=== PATIENT | male | born 1995 | race Hispanic/Latino ===

== ENCOUNTER 2020-02-22 03:46 | Emergency (ER) | payer OTHER ==
[2020-02-22] MEDS ORDERED: TETANUS & DIPHTHERIA TOX,ADULT 0.5 ML VIAL ONE ×2 (03:58→04:12)
[2020-02-22] MEDS ORDERED: CEFAZOLIN/SWI 1gm 1 GM/10 ML SYR ONE (03:59)
[2020-02-22] MEDS ORDERED: LIDOCAINE 1% 20 ML MDV ONE (03:59)
[2020-02-22] MEDS ORDERED: MORPHINE 2 MG/ML SYR ONE ×2 (04:07→04:12)
[2020-02-22 04:36] LABS: Absolute Lymphocytes (CBC) 0.6 K/uL (0.7-4.9); Basophils % 0.2 % (0-1.3); Hematocrit 42.5 % (39.6-49.0); Lymphocytes % 4.3 % (15.3-44.8); MPV 11.7 fL (7.6-11.3); RBC Red Blood Cell Count 4.83 M/uL (4.33-5.43)
[2020-02-22 04:40] LABS: Protime INR 1.28
[2020-02-22 04:48] LABS: Potassium 3.2 mmol/L (3.5-5.1)
[2020-02-22 05:10] LABS: Blood Morphology Comment NOT SEEN (NOT SEEN); Platelet Estimate ADEQ
--- NOTE | 2020-02-22 08:22 | RAD REPORT ---
EXAM DESCRIPTION: RAD -Hand Left 3 View - 02/22/2020 4:55 am CLINICAL HISTORY: Left hand pain status post injury FINDINGS: Amputation involves part of the fourth middle phalanx and fourth distal phalanx. No disloc ation
--- NOTE | 2020-02-22 09:58 | ER ---
Nurse's Notes 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 Coronavirus screen: Proceed with normal triage. Ebola Screen: No symptoms or risks identified at this time. Initial Sepsis Screen: Does the patient meet any 2 criteria? HR > 90 bpm. Does the patient have a suspected source of infection? No. Patient's initial sepsis screen is negative. Risk Assessment: Do you want to hurt yourself or someone else? Patient reports no desire to harm self or others. Onset of symptoms was February 22, 2020. 03:48 Method Of Arrival: EMS: [facility] ea 03:48 Acuity: DAYANNA 3 ea Historical: - Allergies: 04:00 No Known Allergies; ea - Home Meds: 04:00 None [Active]; ea - PMHx: 04:00 None; ea - PSHx: 04:00 None; ea - Immunization history:: Adult Immunizations unknown. - Social history:: Smoking status: unknown. Screenin:53 Abuse screen: Denies threats or abuse. Nutritional screening: No deficits noted. ea Tuberculosis screening: No symptoms or risk factors identified. Fall Risk None identified. Assessment: 03:58 General: Appears uncomfortable, Behavior is calm, cooperative, appropriate for age. ea Pain: Complains of pain in left hand. Neuro: Level of Consciousness is awake, alert, obeys commands, Oriented to person, place, time, situation. Respiratory: Airway is patent Respiratory effort is even, unlabored, Respiratory pattern is regular, symmetrical. Derm: Skin is clammy, Skin is pale, Skin temperature is warm. 03:58 Musculoskeletal: Amputation of. ea 05:03 Reassessment: [facility]aged Care txfr coordinator reports no notification of pt at the [facility] so will experience delay in the patient being transferred, will continue to monitor. 05:39 Reassessment: Patient and/or family updated on plan of care and expected duration. Pain ea level reassessed. Patient is alert, oriented x 3, equal unlabored respirations, skin warm/dry/pink. Pt reports pain has decreased. 06:39 Reassessment: Patient and/or family updated on plan of care and expected duration. Pain ea level reassessed. Patient is alert, oriented x 3, equal unlabored respirations, skin warm/dry/pink. 07:30 Reassessment: Patient appears in no apparent distress at this time. Patient and/or em family updated on plan of care and expected duration. Pain level reassessed. Patient is alert, oriented x 3, equal unlabored respirations, skin warm/dry/pink. 08:30 Reassessment: Patient appears in no apparent distress at this time. Patient and/or em family updated on plan of care and expected duration. Pain level reassessed. pt removed IV, placed dressing, no bleeding noted, IV d/c'd intact. 09:24 Reassessment: Patient appears in no apparent distress at this time. report given to tasia Alonso RN at [facility], pending EMS transportation. 10:30 Reassessment: Patient appears in no apparent distress at this time. Patient and/or em family updated on plan of care and expected duration. Pain level reassessed. Patient is alert, oriented x 3, equal unlabored respirations, skin warm/dry/pink. 10:45 Reassessment: report given to [facility]. em Vital Signs: 03:48 BP 143 / 94; Pulse 105; Resp 20; Temp 100.8; Pulse Ox 98% ; ea 05:37 BP 112 / 88; Pulse 99; Resp 18; Temp 98.6; Pulse Ox 96% ; ea 06:41 BP 144 / 83; Pulse 80; Resp 18; Pulse Ox 95% on R/A; ea 07:30 BP 134 / 80; Pulse 96; Resp 18; Pulse Ox 97% on R/A; em 09:27 BP 144 / 83; Pulse 95; Resp 20; Pulse Ox 97% ; em 10:29 BP 123 / 69; Pulse 95; Resp 16; Pulse Ox 95% on R/A; em ED Course: 03:48 Patient arrived in ED. ea 03:53 Triage completed. ea 03:54 Arm band placed on right wrist. Patient placed in an exam room, on a stretcher, on ea pulse oximetry. 03:54 Patient has correct armband on for positive identification. Bed in low position. Call ea light in reach. Side rails up X2. 03:56 Rommel Doll MD is Attending Physician. tw4 04:00 Mahogany Lee, ISACC is Primary Nurse. ea 04:47 Initiated transfer with Mel at [facility]. Was redirected to Managed Care because patient tt3 is an inmate. 04:55 Hand Left 3 View XRAY In Process Unspecified. EDMS 08:00 Called [facility] to get an update on transfer status of pt, no answer. em1 08:20 Attending Physician role handed off by Rommel Doll MD kdr 08:20 Justice Mccauley MD is Attending Physician. kdr 08:30 Called [facility] to get an update on transfer status of pt, no answer. em1 08:30 No provider procedures requiring assistance completed. em 09:27 IV discontinued, intact, bleeding controlled, No redness/swelling at site. Pressure em dressing applied. Administered Medications: 04:00 Drug: morphine 4 mg Route: IVP; Site: left antecubital; ea 07:30 Follow up: Response: No adverse reaction; Marked relief of symptoms; Pain is decreased; em RASS: Alert and Calm (0) 04:00 Drug: ADAcel 0.5 ml {Telephone Clerk Telegraph Office: [employer]. Exp: 09/30/2021. Lot #: [id number]. } ao Route: IM; Site: right deltoid; 07:30 Follow up: Response: No adverse reaction em 04:01 Drug: Zofran (Ondansetron) 4 mg Route: IVP; Site: left antecubital; ea 07:30 Follow up: Response: No adverse reaction em 04:01 Drug: Ancef 1 grams Route: IVPB; Site: left antecubital; ea 04:15 CANCELLED (Duplicate Order): Tetanus-Diphtheria Toxoid Ped 0.5 ml IM once ao 04:15 CANCELLED (Duplicate Order): Tetanus-Diphtheria Toxoid Adult 0.5 ml IM once ao Outcome: 09:58 ER care complete, transfer ordered by . kdr 11:14 Transferred by ground EMS to [facility], Transfer form em completed. X-rays sent w/ patient. 11:14 Condition: good 11:14 Instructed on the need for transfer, Demonstrated understanding of instructions. 11:14 Patient left the ED. em Signatures: Dispatcher [employer] Benigno Brown, Justice Murray RN, MD MD kdr Munoz, Edgar, RN RN em Martinez, Eric em1 Kehinde Lo RN Mahogany Clark RN RN ea Wadley, Terrence, MD MD tw4 Lazaro Saavedra tt3 Corrections: (The following items were deleted from the chart) 04:15 03:58 Derm: Skin is clammy, Skin is pale, Skin temperature is warm emely han
--- NOTE | 2020-02-22 09:58 | EDPHYS ---
Physician Documentation [facility] Name: Bang Velazquez Age: 24 yrs Sex: Male : 1995 Arrival Date: 02/22/2020 Time: 03:48 Bed 3 Private MD: ED Physician Justice Mccauley HPI: 02/21 05:36 This 24 yrs old Male presents to ER via EMS with complaints of amputation of tw4 left ring finger. 05:36 The patient or guardian reports injury, a laceration, ragged, amputation. The tw4 complaints affect the DIP of left ring finger. Context: The problem was sustained at a correctional facility. Onset: The symptoms/episode began/occurred today. Modifying factors: The symptoms are alleviated by nothing, the symptoms are aggravated by nothing. Severity of symptoms: At their worst the symptoms were moderate, in the emergency department the symptoms are unchanged. Historical: - Allergies: 04:00 No Known Allergies; ea - Home Meds: 04:00 None [Active]; ea - PMHx: 04:00 None; ea - PSHx: 04:00 None; ea - Immunization history:: Adult Immunizations unknown. - Social history:: Smoking status: unknown. ROS: 05:36 Constitutional: Negative for fever, chills, and weight loss, Eyes: Negative for injury, tw4 pain, redness, and discharge, Cardiovascular: Negative for chest pain, palpitations, and edema, Respiratory: Negative for shortness of breath, cough, wheezing, and pleuritic chest pain, Abdomen/GI: Negative for abdominal pain, nausea, vomiting, diarrhea, and constipation, Skin: Negative for injury, rash, and discoloration. 05:36 MS/extremity: Positive for laceration, tenderness. Exam: 05:36 Constitutional: This is a well developed, well nourished patient who is awake, alert, tw4 and in no acute distress. Head/Face: Normocephalic, atraumatic. Cardiovascular: Regular rate and rhythm with a normal S1 and S2. No gallops, murmurs, or rubs. Normal PMI, no JVD. No pulse deficits. Respiratory: Lungs have equal breath sounds bilaterally, clear to auscultation and percussion. No rales, rhonchi or wheezes noted. No increased work of breathing, no retractions or nasal flaring. Abdomen/GI: Soft, non-tender, with normal bowel sounds. No distension or tympany. No guarding or rebound. No evidence of tenderness throughout. Back: No spinal tenderness. No costovertebral tenderness. Full range of motion. Neuro: Awake and alert, GCS 15, oriented to person, place, time, and situation. Cranial nerves II-XII grossly intact. Motor strength 5/5 in all extremities. Sensory grossly intact. Cerebellar exam normal. Normal gait. 05:36 Musculoskeletal/extremity: Extremities: noted in the dorsal aspect of distal phalanx of left ring finger: amputation, ROM: no acute changes. Vital Signs: 03:48 BP 143 / 94; Pulse 105; Resp 20; Temp 100.8; Pulse Ox 98% ; ea 05:37 BP 112 / 88; Pulse 99; Resp 18; Temp 98.6; Pulse Ox 96% ; ea 06:41 BP 144 / 83; Pulse 80; Resp 18; Pulse Ox 95% on R/A; ea 07:30 BP 134 / 80; Pulse 96; Resp 18; Pulse Ox 97% on R/A; em 09:27 BP 144 / 83; Pulse 95; Resp 20; Pulse Ox 97% ; em 10:29 BP 123 / 69; Pulse 95; Resp 16; Pulse Ox 95% on R/A; em MDM: 03:56 Patient medically screened. tw4 05:36 Differential diagnosis: dislocation, open fracture, closed fracture. Data reviewed: tw4 vital signs, nurses notes. Data interpreted: Pulse oximetry: Interpretation: normal. Counseling: I had a detailed discussion with the patient and/or guardian regarding: the historical points, exam findings, and any diagnostic results supporting the discharge/admit diagnosis, radiology results. 02/21 03:58 Order name: PT-INR; Complete Time: 05:24 02/21 05:25 Interpretation: Normal except: PT 15.0. 02/21 03:58 Order name: Ptt, Activated; Complete Time: 05:24 02/21 05:27 Interpretation: Within normal limits: PTT 26.8. 02/21 03:58 Order name: CBC with Diff; Complete Time: 05:24 02/21 05:25 Interpretation: Normal except: WBC 13.2; PLT 87; MPV 11.7; MICHELLE% 89.9; LYM% 4.3; NEUT A tw4 11.9. 02/21 03:58 Order name: BMP; Complete Time: 05:24 tw4 02/21 05:26 Interpretation: Normal except: K 3.2; CL 108; GLUC 107; BUN 19; CRE 1.53; GFR 56. tw4 02/21 04:07 Order name: Hand Left 3 View XRAY; Complete Time: 08:53 tw4 02/21 04:39 Order name: Manual Differential; Complete Time: 05:24 EDMS 02/21 05:26 Interpretation: Normal except: BANDS [F] 4; SEGS 84; LYM 6. tw4 Administered Medications: 04:00 Drug: morphine 4 mg Route: IVP; Site: left antecubital; ea 07:30 Follow up: Response: No adverse reaction; Marked relief of symptoms; Pain is decreased; em RASS: Alert and Calm (0) 04:00 Drug: ADAcel 0.5 ml {Underwriting Support Manager: [employer]. Exp: 09/30/2021. Lot #: [id number]. } ao Route: IM; Site: right deltoid; 07:30 Follow up: Response: No adverse reaction em 04:01 Drug: Zofran (Ondansetron) 4 mg Route: IVP; Site: left antecubital; ea 07:30 Follow up: Response: No adverse reaction em 04:01 Drug: Ancef 1 grams Route: IVPB; Site: left antecubital; ea 04:15 CANCELLED (Duplicate Order): Tetanus-Diphtheria Toxoid Ped 0.5 ml IM once ao 04:15 CANCELLED (Duplicate Order): Tetanus-Diphtheria Toxoid Adult 0.5 ml IM once ao Disposition: 02/22/20 09:58 Transfer ordered to [facility]. 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 - Reason for transfer: Higher level of care. - Accepting physician is Ken Marx. - Condition is Fair. - Problem is new. - Symptoms have improved. Signatures: Dispatcher [employer] Justice Banuelos MD MD kdr Munoz, Edgar, RN RN em Ortiz, Alex, RN RN ao Antunez, Elena, RN RN ea Wadley, Terrence, MD MD tw4 Corrections: (The following items were deleted from the chart) 04:15 04:13 Tetanus-Diphtheria Toxoid Ped 0.5 ml IM once ordered. ao ao 04:15 04:13 Tetanus-Diphtheria Toxoid Adult 0.5 ml IM once ordered. ao ao 11:14 09:58 02/22/2020 09:58 Transfer ordered to [facility]. Diagnosis is Complete traumatic em metacarpophalangeal amputation of left ring finger - mid- midlle phalanx. Reason for transfer: Higher level of care. Accepting physician is Ken Marx. Condition is Fair. Problem is new. Symptoms have improved. kdr
[2020-02-22 12:10] VITALS: TEMP 100.8
[2020-02-22 12:15] VITALS: BP 123/69; O2SAT 95
== END 2020-02-22 11:14 | disposition short-term general hospital (02) ==
LOC: ER 03:46
DX: S68.115A Complete traumatic metacarpophalangeal amputation of left ring finger, initial encounter (principal); X83.8XXA Intentional self-harm by other specified means, initial encounter; Y93.9 Activity, unspecified; Y92.149 Unspecified place in prison as the place of occurrence of the external cause; Z23 Encounter for immunization
CPT/HCPCS: 36415; 80048; 85025; 85610; 85730; 90471; 90714; 96374; 96375; 99285; G0390; J0690; J2270

== ENCOUNTER 2020-04-12 20:48 | Emergency (ER) | payer OTHER ==
--- NOTE | 2020-04-12 21:17 | ER ---
Nurse's Notes [facility] Name: Bang Velazquez Age: 24 yrs Sex: Male : 1995 Arrival Date: 04/12/2020 Time: 20:50 Bed 7 Private MD: Diagnosis: Suicidal ideations;Suicide attempt-self inflicted bite to left 5th finger, and left neck;Major depressive disorder, recurrent;Nondisplaced fracture of proximal phalanx of left middle finger Presentation: 04/12 20:51 Chief complaint: EMS states: Reports pt had a self inflicted injuries to the neck, left ea wrist and left pinky. Pt accompanied by alf guards. Pt reported he used a razor blade to cut his wrist and neck, pt tried to bite his own pinky off. Coronavirus screen: At this time, the client does not indicate any symptoms associated with coronavirus-19. Ebola Screen: No symptoms or risks identified at this time. Initial Sepsis Screen: Does the patient meet any 2 criteria? No. Patient's initial sepsis screen is negative. Does the patient have a suspected source of infection? No. Patient's initial sepsis screen is negative. Risk Assessment: Do you want to hurt yourself or someone else? Patient reports desire/thoughts of hurting themselves or someone else. Provider notified. Other: pt reports he was trying to hurt himself. Onset of symptoms was April 12, 2020. 20:51 Method Of Arrival: EMS: [facility] ea 20:51 Acuity: DAYANNA 2 ea Triage Assessment: 20:58 General: Appears in no apparent distress. Behavior is calm, cooperative, appropriate ea for age. Pain: Complains of pain in left hand. Historical: - Allergies: 20:57 No Known Allergies; ea - Home Meds: 20:57 Zoloft Oral [Active]; ea - PSHx: 20:57 None; left hand surgery; ea - Immunization history:: Adult Immunizations up to date. - Social history:: Smoking status: Patient denies any tobacco usage or history of. Screenin:55 Abuse screen: Denies threats or abuse. Nutritional screening: No deficits noted. ea Tuberculosis screening: No symptoms or risk factors identified. Fall Risk None identified. Assessment: 20:58 General: Appears in no apparent distress. Behavior is cooperative, quiet. Pain: ea Complains of pain in palmar aspect of middle phalanx of left little finger and dorsal aspect of middle phalanx of left little finger. Neuro: Level of Consciousness is awake, alert, obeys commands, Oriented to person, place, time, situation. Cardiovascular: Patient's skin is warm and dry. Respiratory: Airway is patent Respiratory effort is even, unlabored, Respiratory pattern is regular, symmetrical. Derm: Skin is dry, Skin is pale, Skin temperature is warm. Injury Description: self inflicted abrasions to neck, superficial self harm laceration to chas wrist, bite shahrzad to left 5th finger. 21:47 Reassessment: Patient and/or family updated on plan of care and expected duration. Pain ea level reassessed. Patient is alert, oriented x 3, equal unlabored respirations, skin warm/dry/pink. 22:37 Reassessment: Report given to [place] DEXTER at [facility]. ea 23:11 Reassessment: Patient and/or family updated on plan of care and expected duration. Pain ea level reassessed. Patient is alert, oriented x 3, equal unlabored respirations, skin warm/dry/pink. 04/13 00:07 Reassessment: Pt resting with eyes closed, respirations even and unlabored, chest ea expansions even and symmetrical. Psych: 04/12 20:55 Subjective: Patient's mood is sad, Delusions are denied, Hallucinations are denied ea Having thoughts of suicide. Objective: Patient is cooperative, Speech is normal, Affect is appropriate. Suicide Risk Assessment: Sad Person Scale: Sex of patient: Male: Score 1 point. Age of patient: Score 1 point if patient 15-34. Depression: Score 1 point if signs of depression are present. Previous Attempt: Score 1 point if patient has previously attempted suicide. Substance Abuse: Score 0 point if patient does not abuse alcohol or drugs. Rational Thinking: Score 0 point if patient has rational thinking. Organized Plan: Score 1 point if patient had a plan in place. Safety Checks: Door is open. alf guards at bedside. Pt denies substance abuse. 20:58 Interventions: pt arrived cuffed and accompanied by alf guards. ea 04/13 00:48 Commitment: Patient will be a voluntary commitment. mg2 Vital Signs: 04/12 20:51 BP 151 / 86; Pulse 94; Resp 18; Temp 98.8; Pulse Ox 100% on R/A; Weight 72.57 kg; ea Height 6 ft. 1 in. (185.42 cm); Pain 8/10; 21:47 BP 147 / 83; Pulse 98; Resp 18; Pulse Ox 100% ; ea 22:38 BP 126 / 89; Pulse 92; Resp 18; Pulse Ox 100% ; ea 04/13 00:47 BP 126 / 80; Pulse 92; Resp 18; Pulse Ox 100% on R/A; mg2 04/12 20:51 Body Mass Index 21.11 (72.57 kg, 185.42 cm) ea ED Course: 04/12 20:50 Patient arrived in ED. ea 20:55 Triage completed. ea 20:55 Patient has correct armband on for positive identification. Bed in low position. Call ea light in reach. Side rails up X2. alf guards at bedside. 20:58 Arm band placed on right wrist. Patient placed in an exam room, on a stretcher, on ea pulse oximetry. 20:59 Mahogany Lee RN is Primary Nurse. ea 21:04 Vikash Verde MD is Attending Physician. magdalena 21:29 Hand Left 3 View XRAY In Process Unspecified. EDMS 21:31 initiated transfer with TDC spoke with Frankie. mw2 22:19 acceptance to [facility]DC given by Frankie Gibson Accepting . mw2 22:50 [facility]2 hours. mw2 23:30 Inserted saline lock: 20 gauge in right antecubital area, using aseptic technique. mg2 Blood collected. by ISACC Vides. 04/13 00:46 No provider procedures requiring assistance completed. Patient transferred, IV remains mg2 in place. Administered Medications: 04/12 21:28 Drug: Unasyn 3 grams Route: IVPB; Infused Over: 30 mins; Site: right antecubital; ea 23:17 Follow up: Response: No adverse reaction; IV Status: Completed infusion; IV Intake: mg2 100ml : Drug: NS 0.9% 1000 ml Route: IV; Rate: 1 bolus; Site: right antecubital; ea 23:17 Follow up: Response: No adverse reaction; IV Status: Completed infusion; IV Intake: mg2 1000ml : Drug: Bactroban Ointment 2 % 1 application Route: Topical; Site: affected area; ea 21:43 Drug: Tetanus-Diphtheria Toxoid Adult 0.5 ml {Drainage Engineer: [employer]. Exp: ea 10/09/2022. Lot #: [id number]. } Route: IM; Site: right deltoid; 23:18 Follow up: Response: No adverse reaction mg2 Intake: 23:17 IV: 1000ml; Total: 1000ml. mg2 23:17 IV: 100ml; Total: 1100ml. mg2 Outcome: 21:17 ER care complete, transfer ordered by MD. nichols 04/13 00:47 Transferred by ground EMS to [facility], Transfer form mg2 completed. Condition: stable Instructed on the need for transfer, Demonstrated understanding of instructions. 00:48 Patient left the ED. mg2 Signatures: Dispatcher [employer] EDVikash Weaver MD MD cha Antunez, Elena, RN Chano Quiroga ea 2 Deejay Mckinley RN RN mg2 Corrections: (The following items were deleted from the chart) 00:47 04/12 23:30 Inserted saline lock: by ISACC Vides mg2 mg2
--- NOTE | 2020-04-12 21:17 | EDPHYS ---
Physician Documentation [facility] Name: Bang Velazquez Age: 24 yrs Sex: Male : 1995 Arrival Date: 04/12/2020 Time: 20:50 Bed 7 Private MD: ED Physician Vikash Verde HPI: 04/12 21:10 This 24 yrs old Male presents to ER via EMS with complaints of Suicidal magdalena Ideation and bite to left 5th finger, infected. 21:10 The patient presents to the emergency department with depression, suicide ideation. magdalena Onset: The symptoms/episode began/occurred 2 day(s) ago. Past psychiatric history: Prior diagnosis: bipolar disorder, depression. Associated signs and symptoms: Pertinent positives; depression, suicide ideation. Severity of symptoms: At their worst the symptoms were moderate in the emergency department the symptoms are unchanged. The patient has not experienced similar symptoms in the past. Historical: - Allergies: 20:57 No Known Allergies; ea - Home Meds: 20:57 Zoloft Oral [Active]; ea - PSHx: 20:57 None; left hand surgery; ea - Immunization history:: Adult Immunizations up to date. - Social history:: Smoking status: Patient denies any tobacco usage or history of. ROS: 21:12 Constitutional: Negative for fever, chills, and weight loss, Eyes: Negative for injury, magdalena pain, redness, and discharge, ENT: Negative for injury, pain, and discharge, Neck: Negative for injury, pain, and swelling, Cardiovascular: Negative for chest pain, palpitations, and edema, Respiratory: Negative for shortness of breath, cough, wheezing, and pleuritic chest pain, Abdomen/GI: Negative for abdominal pain, nausea, vomiting, diarrhea, and constipation, Back: Negative for injury and pain, : Negative for injury, bleeding, discharge, and swelling, Neuro: Negative for headache, weakness, numbness, tingling, and seizure, Allergy/Immunology: Negative for hives, rash, and allergies, Endocrine: Negative for neck swelling, polydipsia, polyuria, polyphagia, and marked weight changes, Hematologic/Lymphatic: Negative for swollen nodes, abnormal bleeding, and unusual bruising. 21:12 MS/extremity: Positive for decreased range of motion, erythema, pain, swelling, tenderness, of the dorsal aspect of middle phalanx of left little finger and palmar aspect of middle phalanx of left little finger. Exam: 21:12 Constitutional: This is a well developed, well nourished patient who is awake, alert, magdalena and in no acute distress. Head/Face: Normocephalic, atraumatic. Eyes: Pupils equal round and reactive to light, extra-ocular motions intact. Lids and lashes normal. Conjunctiva and sclera are non-icteric and not injected. Cornea within normal limits. Periorbital areas with no swelling, redness, or edema. ENT: Nares patent. No nasal discharge, no septal abnormalities noted. Tympanic membranes are normal and external auditory canals are clear. Oropharynx with no redness, swelling, or masses, exudates, or evidence of obstruction, uvula midline. Mucous membranes moist. Neck: Trachea midline, no thyromegaly or masses palpated, and no cervical lymphadenopathy. Supple, full range of motion without nuchal rigidity, or vertebral point tenderness. No Meningismus. Chest/axilla: Normal chest wall appearance and motion. Nontender with no deformity. No lesions are appreciated. Cardiovascular: Regular rate and rhythm with a normal S1 and S2. No gallops, murmurs, or rubs. Normal PMI, no JVD. No pulse deficits. Respiratory: Lungs have equal breath sounds bilaterally, clear to auscultation and percussion. No rales, rhonchi or wheezes noted. No increased work of breathing, no retractions or nasal flaring. Abdomen/GI: Soft, non-tender, with normal bowel sounds. No distension or tympany. No guarding or rebound. No evidence of tenderness throughout. Back: No spinal tenderness. No costovertebral tenderness. Full range of motion. Male : Normal genitalia with no discharge or lesions. Skin: Warm, dry with normal turgor. Normal color with no rashes, no lesions, and no evidence of cellulitis. Neuro: Awake and alert, GCS 15, oriented to person, place, time, and situation. Cranial nerves II-XII grossly intact. Motor strength 5/5 in all extremities. Sensory grossly intact. Cerebellar exam normal. Normal gait. 21:12 Musculoskeletal/extremity: ROM: limited active range of motion due to pain, limited passive range of motion due to pain, Circulation is intact in all extremities. Sensation intact. Compartment Syndrome exam of affected extremity: is normal. Tendon exam: specific tendon testing normal through active and passive range of motion 21:12 Psych: Behavior/mood is pleasant, cooperative, Affect is flat, Oriented to person, place, time, Patient has no thoughts/intents to harm self or others. Judgement / Insight is normal. Memory is normal. Delusions/hallucinations are not present. 21:43 ECG was reviewed by the Attending Physician. magdalena Vital Signs: 20:51 BP 151 / 86; Pulse 94; Resp 18; Temp 98.8; Pulse Ox 100% on R/A; Weight 72.57 kg; ea Height 6 ft. 1 in. (185.42 cm); Pain 8/10; 21:47 BP 147 / 83; Pulse 98; Resp 18; Pulse Ox 100% ; ea 22:38 BP 126 / 89; Pulse 92; Resp 18; Pulse Ox 100% ; ea 04/13 00:47 BP 126 / 80; Pulse 92; Resp 18; Pulse Ox 100% on R/A; mg2 04/12 20:51 Body Mass Index 21.11 (72.57 kg, 185.42 cm) ea MDM: 04/12 21:04 Patient medically screened. magdalena 21:14 Differential diagnosis: open fracture, tendonitis, acute psychotic break, depression. magdalena Data reviewed: vital signs, nurses notes, lab test result(s), EKG, radiologic studies, plain films. 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 rate is 94 beats/min, rhythm is regular, Pulse oximetry: on room air is 100 %. Test interpretation: by ED physician or midlevel provider: ECG, plain radiologic studies. Counseling: I had a detailed discussion with the patient and/or guardian regarding: the historical points, exam findings, and any diagnostic results supporting the discharge/admit diagnosis, lab results, radiology results, the need to transfer to another facility, for higher level of care, [facility] does not immediately have the required specialist. 04/12 21:10 Order name: Acetaminophen; Complete Time: 22:13 magdalena 04/12 21:10 Order name: Basic Metabolic Panel; Complete Time: 22:13 magdalena 04/12 21:10 Order name: CBC with Diff; Complete Time: 22:13 [facility] 04/12 21:10 Order name: ETOH Level; Complete Time: 22:13 [facility] 04/12 21:10 Order name: Hepatic Function; Complete Time: 22:13 [facility] 04/12 21:10 Order name: PT-INR; Complete Time: 22:13 [facility] 04/12 21:10 Order name: Ptt, Activated; Complete Time: 22:13 [facility] 04/12 21:10 Order name: Salicylate; Complete Time: 22:13 [facility] 04/12 21:10 Order name: Urine Drug Screen [facility] 04/12 21:10 Order name: Hand Left 3 View XRAY; Complete Time: 22:13 [facility] 04/12 23:07 Order name: Urine Dipstick--Ancillary (enter results) [facility] 04/12 21:10 Order name: EKG; Complete Time: 21:11 [facility] 04/12 21:10 Order name: EKG - Nurse/Tech; Complete Time: 21:12 [facility] 04/12 21:10 Order name: IV Saline Lock; Complete Time: 21:12 [facility] 04/12 21:10 Order name: Labs collected and sent; Complete Time: 21:12 [facility] 04/12 21:10 Order name: Urine Dipstick-Ancillary (obtain specimen); Complete Time: 23:17 [facility] 04/12 21:10 Order name: Wound dressing; Complete Time: 21:12 [facility] EC:43 Rate is 96 beats/min. Rhythm is regular. QRS [place] is Normal. ND interval is normal. QRS magdalena interval is normal. QT interval is normal. No Q waves. T waves are Normal. No ST changes noted. Clinical impression: NSR w/ Non-specific ST/T Changes and No evidence of ischemia. Interpreted by me. Reviewed by me. Administered Medications: :28 Drug: Unasyn 3 grams Route: IVPB; Infused Over: 30 mins; Site: right antecubital; ea 23:17 Follow up: Response: No adverse reaction; IV Status: Completed infusion; IV Intake: mg2 100ml 21:28 Drug: NS 0.9% 1000 ml Route: IV; Rate: 1 bolus; Site: right antecubital; ea 23:17 Follow up: Response: No adverse reaction; IV Status: Completed infusion; IV Intake: mg2 1000ml 21:28 Drug: Bactroban Ointment 2 % 1 application Route: Topical; Site: affected area; ea 21:43 Drug: Tetanus-Diphtheria Toxoid Adult 0.5 ml {Sole Tacker: [employer]. Exp: ea 10/09/2022. Lot #: [id number]. } Route: IM; Site: right deltoid; 23:18 Follow up: Response: No adverse reaction mg2 Disposition: 04/12/20 21:17 Transfer ordered to [facility]. Diagnosis are Suicidal ideations, Suicide attempt - self inflicted bite to left 5th finger, and left neck, Major depressive disorder, recurrent, Nondisplaced fracture of proximal phalanx of left middle finger. - Reason for transfer: Higher level of care. - Accepting physician is [facility] tdc, psych, hand. - Condition is Fair. - Problem is new. - Symptoms have improved. Signatures: Dispatcher [employer] EDVikash Weaver MD MD cha Antunez, Elena, RN RN ea Gardose, Michele, RN RN mg2 Corrections: (The following items were deleted from the chart) 21:47 21:17 04/12/2020 21:17 Transfer ordered to [facility]. Diagnosis is Suicidal magdalena ideations; Suicide attempt - self inflicted bite to left 5th finger, and left neck; Major depressive disorder, recurrent. Reason for transfer: Higher level of care. Accepting physician is [facility] tdc, psych, hand. Condition is Fair. Problem is new. Symptoms have improved. magdalena 04/13 00:48 04/12 21:47 04/12/2020 21:17 Transfer ordered to [facility]. Diagnosis is Suicidal mg2 ideations; Suicide attempt - self inflicted bite to left 5th finger, and left neck; Major depressive disorder, recurrent; Nondisplaced fracture of proximal phalanx of left middle finger. Reason for transfer: Higher level of care. Accepting physician is [facility] tdc, psych, hand. Condition is Fair. Problem is new. Symptoms have improved. magdalena
[2020-04-12] MEDS ORDERED: NA CHLORIDE 0.9% 1,000 ML ONE (21:24)
[2020-04-12] MEDS ORDERED: AMPICILLIN/SULBACTAM 3GM/VIAL ONE (21:24)
[2020-04-12] MEDS ORDERED: NA CHLORIDE 0.9% 100 ML IV ONE (21:24)
[2020-04-12] MEDS ORDERED: MUPIROCIN 2% OINT 22GM TUBE TOP ONE (21:24)
[2020-04-12] MEDS ORDERED: TETANUS & DIPHTHERIA TOX,ADULT 0.5 ML VIAL ONE (21:44)
--- NOTE | 2020-04-12 21:45 | RAD REPORT ---
EXAM DESCRIPTION: RAD - Hand Left 3 View - 04/12/2020 9:29 pm CLINICAL HISTORY: self inflicted bite;Pain Pain and swelling COMPARISON: Hand Left 3 View dated 02/22/2020 FINDINGS: Previous partial amputation of the fourth finger noted. Mild soft tissue swelling is prese nt involving the fifth finger. No fracture seen
[2020-04-12 21:58] LABS: Absolute Lymphocytes (CBC) 1.2 K/uL (0.7-4.9); Basophils % 0.4 % (0-1.3); Hematocrit 40.7 % (39.6-49.0); Lymphocytes % 13.1 % (15.3-44.8); MPV 12.2 fL (7.6-11.3); RBC Red Blood Cell Count 4.64 M/uL (4.33-5.43)
[2020-04-12 22:04] LABS: ALT/SGPT 18 U/L (12-78); AST/SGOT 20 U/L (15-37); Albumin 3.9 g/dL (3.4-5.0); Alkaline Phosphatase 59 U/L (45-117); BUN Blood Urea Nitrogen 23 mg/dL (7-18); Bicarbonate 27 mmol/L (21-32); Bilirubin Direct 0.2 mg/dL (0-0.2); Bilirubin Total 0.5 mg/dL (0.2-1.0); Glucose Level 104 mg/dL (74-106); Potassium 3.7 mmol/L (3.5-5.1); Protein, Total 8.2 g/dL (6.4-8.2); Sodium Level 138 mmol/L (136-145)
[2020-04-12 22:05] LABS: Protime INR 1.26
[2020-04-12 23:16] LABS: Urine Blood NEGATIVE (NEG); Urine Glucose NEGATIVE (NEG); Urine Protein NEGATIVE (NEG); Urine pH 6.5 (5.0-7.0)
[2020-04-12 23:27] LABS: Barbiturates NEGATIVE (NEGATIVE); Benzodiazepines NEGATIVE (NEGATIVE); Cocaine NEGATIVE (NEGATIVE); METHAMPHETAM NEGATIVE (NEGATIVE); Methadone NEGATIVE (NEGATIVE); Opiates NEGATIVE (NEGATIVE); Phencyclidine NEGATIVE (NEGATIVE); THC Cannibis NEGATIVE (NEGATIVE)
--- NOTE | 2020-04-14 05:50 | EKG ---
Test Date: 2020-04-12 Test Time: 21:10:10 Talk Show Host: MG MEASUREMENT RESULTS: Intervals: Rate: 96 ID: [id number] QRSD: 108 QT: 394 QTc: 497 [place]: P: 61 ID: [id number] QRS: 74 T: 56 INTERPRETIVE STATEMENTS: Normal sinus rhythm Right atrial enlargement Prolonged QT Abnormal ECG No previous ECG available for comparison Electronically Signed On 04-14-20 05:45:36 CDT by Douglas Jackman
[2020-04-17 08:55] VITALS: TEMP 98.8; O2SAT 100
[2020-04-17 08:59] VITALS: BP 126/80
== END 2020-04-13 00:48 | disposition short-term general hospital (02) ==
LOC: ER 20:48
DX: S11.91XA Laceration without foreign body of unspecified part of neck, initial encounter (principal); S61.512A Laceration without foreign body of left wrist, initial encounter; S62.613A Displaced fracture of proximal phalanx of left middle finger, initial encounter for closed fracture; F33.9 Major depressive disorder, recurrent, unspecified; X78.8XXA Intentional self-harm by other sharp object, initial encounter; Y93.9 Activity, unspecified; Y92.149 Unspecified place in prison as the place of occurrence of the external cause; S61.253A Open bite of left middle finger without damage to nail, initial encounter; W50.3XXA Accidental bite by another person, initial encounter; Z23 Encounter for immunization
CPT/HCPCS: 36415; 80048; 80076; 80307; 80320; 80329; 81003; 85025; 85610; 85730; 90471; 90714; 93005; 96365; 96366; 99285; J0295; J7030

== ENCOUNTER 2020-07-18 20:18 | Emergency (ER) | payer OTHER ==
[2020-07-18 21:04] LABS: Absolute Lymphocytes (CBC) 0.9 K/uL (0.7-4.9); Basophils % 0.2 % (0-1.3); Hematocrit 41.6 % (39.6-49.0); Lymphocytes % 12.7 % (15.3-44.8); MPV 11.2 fL (7.6-11.3); RBC Red Blood Cell Count 4.76 M/uL (4.33-5.43)
[2020-07-18 21:18] LABS: Protime INR 1.13
[2020-07-18 21:47] LABS: ALT/SGPT 16 U/L (12-78); AST/SGOT 21 U/L (15-37); Albumin 4.2 g/dL (3.4-5.0); Alkaline Phosphatase 57 U/L (45-117); BUN Blood Urea Nitrogen 16 mg/dL (7-18); Bicarbonate 27 mmol/L (21-32); Bilirubin Direct 0.2 mg/dL (0-0.2); Bilirubin Total 0.7 mg/dL (0.2-1.0); Glucose Level 104 mg/dL (74-106); Potassium 4.1 mmol/L (3.5-5.1); Protein, Total 7.5 g/dL (6.4-8.2); Sodium Level 138 mmol/L (136-145)
[2020-07-18 22:28] LABS: Blood Morphology Comment NOT SEEN (NOT SEEN); Platelet Estimate DECR; White Blood Cell Scan OK (OK)
[2020-07-18 23:21] LABS: Urine Blood TRACE (NEG); Urine Glucose NEGATIVE (NEG); Urine Protein NEGATIVE (NEG); Urine Specific Gravity 1.015 (1.005-1.030)
[2020-07-18 23:34] LABS: Barbiturates NEGATIVE (NEGATIVE); Benzodiazepines NEGATIVE (NEGATIVE); Cocaine NEGATIVE (NEGATIVE); METHAMPHETAM NEGATIVE (NEGATIVE); Methadone NEGATIVE (NEGATIVE); Opiates NEGATIVE (NEGATIVE); Phencyclidine NEGATIVE (NEGATIVE); THC Cannibis NEGATIVE (NEGATIVE)
--- NOTE | 2020-07-19 05:40 | EDPHYS ---
Physician Documentation [facility] Name: Bang Velazquez Age: 24 yrs Sex: Male : 1995 Arrival Date: 07/18/2020 Time: 20:19 Bed 2 Private MD: ED Physician Garry Beasley HPI: 07/18 20:42 This 24 yrs old Male presents to ER via Unassigned with complaints of Overdose.mh7 20:42 The patient presents to the emergency department after a known overdose, that was mh7 intentional. Context: Method: the patient has a confirmed or suspected ingestion, Risperidal, Time: today, at 17:30, Extent: moderate ingestion, the strength of the pills/capsules is 2 mg(s), the patient had a total ingestion of approximately 40 mg(s), 20 pills, the OD/poisoning occurred at [facility], and was witnessed no one, Psychiatric history: the patient has a known psychiatric disorder, depression, schizophrenia, Previous OD/poisoning history: It is unknown if the patient has had similar previous episodes. Associated signs and symptoms: Pertinent negatives: anxiety, apnea, auditory hallucinations, burning of skin, decreased level of consciousness, depression, diaphoresis, diarrhea, dizziness, incontinence, loss of consciousness, nausea, palpitations, shortness of breath, tearfulness, visual hallucinations, vomiting. Severity of symptoms: At their worst the symptoms were moderate today, in the emergency department the symptoms are unchanged. 20:42 Patient brought to ED from assisted due to taking Risperdal 2 mg pills total of 20 pills mh7 \T\ 1730 today. He states he took the pills to try to get rid of the voices that he hears that contradict everything that he says. He denies any visual hallucinations, suicidal ideation, or homicidal ideation. He denies any complaints.. Historical: - Allergies: 20:42 No Known Allergies; ll2 - Home Meds: 20:42 Zoloft Oral [Active]; ll2 - Immunization history:: Adult Immunizations up to date. - Social history:: Smoking status: Patient reports the use of cigarette tobacco products, Patient/guardian denies using tobacco. ROS: 20:42 Constitutional: Negative for fever, chills, and weight loss, Eyes: Negative for injury, mh7 pain, redness, and discharge, ENT: Negative for injury, pain, and discharge, Neck: Negative for injury, pain, and swelling, Cardiovascular: Negative for chest pain, palpitations, and edema, Respiratory: Negative for shortness of breath, cough, wheezing, and pleuritic chest pain, Abdomen/GI: Negative for abdominal pain, nausea, vomiting, diarrhea, and constipation, Back: Negative for injury and pain, : Negative for injury, bleeding, discharge, and swelling, MS/Extremity: Negative for injury and deformity, Skin: Negative for injury, rash, and discoloration, Neuro: Negative for headache, weakness, numbness, tingling, and seizure, Allergy/Immunology: Negative for hives, rash, and allergies, Endocrine: Negative for neck swelling, polydipsia, polyuria, polyphagia, and marked weight changes, Hematologic/Lymphatic: Negative for swollen nodes, abnormal bleeding, and unusual bruising. Exam: 20:42 Constitutional: This is a well developed, well nourished patient who is awake, alert, mh7 and in no acute distress. Head/Face: Normocephalic, atraumatic. 20:42 Neck: Trachea midline, no thyromegaly or masses palpated, and no cervical lymphadenopathy. Supple, full range of motion without nuchal rigidity, or vertebral point tenderness. No Meningismus. Chest/axilla: Normal chest wall appearance and motion. Nontender with no deformity. No lesions are appreciated. Cardiovascular: Regular rate and rhythm with a normal S1 and S2. No gallops, murmurs, or rubs. Normal PMI, no JVD. No pulse deficits. Respiratory: Lungs have equal breath sounds bilaterally, clear to auscultation and percussion. No rales, rhonchi or wheezes noted. No increased work of breathing, no retractions or nasal flaring. Abdomen/GI: Soft, non-tender, with normal bowel sounds. No distension or tympany. No guarding or rebound. No evidence of tenderness throughout. Back: No spinal tenderness. No costovertebral tenderness. Full range of motion. Skin: Warm, dry with normal turgor. Normal color with no rashes, no lesions, and no evidence of cellulitis. MS/ Extremity: Pulses equal, no cyanosis. Neurovascular intact. Full, normal range of motion. Neuro: Awake and alert, GCS 15, oriented to person, place, time, and situation. Cranial nerves II-XII grossly intact. Motor strength 5/5 in all extremities. Sensory grossly intact. Cerebellar exam normal. Normal gait. 20:42 Eyes: Periorbital structures: appear normal, Pupils: pinpoint, bilaterally, Extraocular movements: intact throughout, Conjunctiva: normal, Corneas: are normal, Sclera: no appreciated abnormality. 20:42 Psych: Behavior/mood is cooperative, Affect is calm, Oriented to person, place, time, Patient has no thoughts/intents to harm self or others. Judgement / Insight is impaired. Memory is normal. Delusions/hallucinations are present and described as Hearing voices that contradict everything he says. Vital Signs: 20:56 BP 126 / 62; Pulse 62; Resp 10; Temp 98.8(T); Pulse Ox 100% on R/A; ll2 21:53 BP 127 / 76; Pulse 58; Resp 11; Pulse Ox 98% on R/A; ll2 22:55 BP 103 / 59; Pulse 54; Resp 14; Pulse Ox 97% on R/A; rv 23:45 BP 117 / 68; Pulse 54; Resp 18; Pulse Ox 98% on R/A; ll2 12/03 00:45 BP 90 / 62; Pulse 52; Resp 18; Temp 98.7; Pulse Ox 98% on R/A; ll2 01:45 BP 94 / 55; Pulse 54; Resp 17; Pulse Ox 98% on R/A; ll2 02:23 BP 112 / 63; Pulse 49; Resp 14; Pulse Ox 99% on R/A; ll2 03:38 BP 96 / 61; Pulse 57; Resp 18; Pulse Ox 97% on R/A; ll2 04:55 BP 135 / 82; Pulse 55; Resp 16; Pulse Ox 96% on R/A; ll2 MDM: 05:31 Differential diagnosis: Ingestion/exposure to Risperdal polypharmacy, over medication, mh7 Intentional Overdose, Suicidal Ideation. Data reviewed: vital signs, nurses notes, old medical records, lab test result(s), CBC, drug level(s), electrolytes, urinalysis, urine drug screen, EKG. Data interpreted: Pulse oximetry: on room air is 96 %. Interpretation: normal. Counseling: I had a detailed discussion with the patient and/or guardian regarding: the historical points, exam findings, and any diagnostic results supporting the discharge/admit diagnosis, lab results. Response to treatment: the patient's symptoms have resolved after treatment, the patient's blood pressure is in an acceptable range, mental status has returned to baseline, the patient no longer shows bradycardia, the patient is not short of breath, the patient is not tachycardic, the patient's pain is gone, the patient's temperature has normalized. ED course: Poison control was contacted and recommended observation for 6-8 hours post ingestion. No complications occurred during observation period. [facility] psychiatry was contacted and recommended that patient be returned to assisted on observation unit and they will contact assisted to send patient to them for psychiatric evaluation once a bed is available. This plan was agreed to by assisted authorities.. 05:39 Patient medically screened. [facility] 07/18 20:40 Order name: Acetaminophen; Complete Time: 22:16 [facility] 07/18 20:40 Order name: Basic Metabolic Panel; Complete Time: 22:16 [facility] 07/18 20:40 Order name: CBC with Diff; Complete Time: 22:37 [facility] 07/18 20:40 Order name: ETOH Level; Complete Time: 22:16 [facility] 07/18 20:40 Order name: Hepatic Function; Complete Time: 22:16 [facility] 07/18 20:40 Order name: PT-INR; Complete Time: 22:16 [facility] 07/18 20:40 Order name: Ptt, Activated; Complete Time: 22:16 [facility] 07/18 20:40 Order name: Salicylate; Complete Time: 22:16 [facility] 07/18 20:40 Order name: Urine Drug Screen; Complete Time: 23:49 [facility] 07/18 21:11 Order name: CBC Smear Scan; Complete Time: 22:37 [facility] 07/18 23:15 Order name: Urine Dipstick--Ancillary (enter results); Complete Time: 23:49 [facility] 07/19 02:31 Order name: COVID-19 [facility] 07/19 04:25 Order name: SARS-COV-2 RT PCR; Complete Time: 04:34 [facility] 07/18 20:40 Order name: EKG - Nurse/Tech; Complete Time: 21:06 [facility] 07/18 20:40 Order name: IV Saline Lock; Complete Time: 20:59 [facility] 07/18 20:40 Order name: Labs collected and sent; Complete Time: 20:59 7 07/18 20:40 Order name: Urine Dipstick-Ancillary (obtain specimen); Complete Time: 20:59 mh7 Administered Medications: No medications were administered Disposition: 07/19/20 05:39 Discharged to Home. Impression: Medication Overdose. - Condition is Stable. - Discharge Instructions: Drug Overdose. - Medication Reconciliation Form, Thank You Letter, Antibiotic Education, Prescription Opioid Use form. - Follow up: Private Physician; When: 24 Hours; Reason: Worsening of condition, Recheck today's complaints, Continuance of care, Re-evaluation by your physician. - Problem is new. - Symptoms have improved. Signatures: Dispatcher [employer] [facility] Diana Healy RN RN 2 Garry Beasley MD MD 7 Corrections: (The following items were deleted from the chart) 03:10 02:31 [facility]ON[facility] ordered. [facility] 05:52 05:39 07/19/2020 05:39 Discharged to Home. Impression: Medication Overdose. Condition ll2 is Stable. Forms are Medication Reconciliation Form, Thank You Letter, Antibiotic Education, Prescription Opioid Use. Follow up: Private Physician; When: 24 Hours; Reason: Worsening of condition, Recheck today's complaints, Continuance of care, Re-evaluation by your physician. Problem is new. Symptoms have improved. [facility]
--- NOTE | 2020-07-19 05:40 | ER ---
Nurse's Notes [facility] Name: Bang Velazquez Age: 24 yrs Sex: Male : 1995 Arrival Date: 07/18/2020 Time: 20:19 Bed 2 Private MD: Diagnosis: Medication Overdose Presentation: 07/18 20:25 Method Of Arrival: Law Enforcement: [employer] [facility] ll2 20:33 Chief complaint: Patient states: states he took 15-20 "respudo" pills to make the ll2 voices stop. inmate is currently cuffed at hands and ankles by state. states he takes them on a daily basis but today the voices were just nonstop, denies urges of self harm and to kill himself. neuro assessment is intact, pupils are constricted at 2mm. Coronavirus screen: Client denies travel out of the [place] in the last 14 days. At this time, the client does not indicate any symptoms associated with coronavirus-19. Ebola Screen: Patient negative for fever greater than or equal to 101.5 degrees Fahrenheit, and additional compatible Ebola Virus Disease symptoms. Initial Sepsis Screen: Does the patient meet any 2 criteria? No. Patient's initial sepsis screen is negative. Does the patient have a suspected source of infection? No. Patient's initial sepsis screen is negative. Risk Assessment: Do you want to hurt yourself or someone else? Patient reports no desire to harm self or others. Onset of symptoms was July 18, 2020. 20:33 Acuity: DAYANNA 3 ll2 Triage Assessment: 20:37 General: Appears in no apparent distress. Behavior is calm, cooperative, appropriate ll2 for age. Pain: Denies pain. Neuro: Level of Consciousness is awake, alert, obeys commands, Oriented to person, place, time, situation. Cardiovascular: Patient's skin is warm and dry. Cardiovascular: Respiratory: Airway is patent Respiratory effort is even, unlabored, Respiratory pattern is regular, symmetrical. GI: No signs and/or symptoms were reported involving the gastrointestinal system. : No signs and/or symptoms were reported regarding the genitourinary system. : No signs and/or symptoms were reported regarding the genitourinary system. Derm: No signs and/or symptoms reported regarding the dermatologic system. Derm: Skin is intact, is healthy with good turgor, Skin is dry, Skin is pink, warm \\T\\ dry. Musculoskeletal: Circulation, motion, and sensation intact. Range of motion: intact in all extremities. Historical: - Allergies: 20:42 No Known Allergies; ll2 - Home Meds: 20:42 Zoloft Oral [Active]; ll2 - Immunization history:: Adult Immunizations up to date. - Social history:: Smoking status: Patient reports the use of cigarette tobacco products, Patient/guardian denies using tobacco. Screenin:38 Abuse screen: Denies threats or abuse. Nutritional screening: No deficits noted. ll2 Tuberculosis screening: No symptoms or risk factors identified. Fall Risk None identified. Assessment: 20:38 Reassessment: Patient and/or family updated on plan of care and expected duration. Pain ll2 level reassessed. see triage assessment. 20:44 Reassessment: on phone with poison control, erd to be notified shortly. ll2 20:44 Reassessment: poison control instructed to monitor for 6 hrs post ingestion at least. ll2 look for cylinder devalver depression and, EPS, and distonic movements. continue to monitor V/S and pupil size. too late to treat with charcoal, watch for QT prolongation and monitor for a seizure. 21:00 General: Appears in no apparent distress. Behavior is calm, cooperative, appropriate ll2 for age. Pain: Denies pain. Neuro: Level of Consciousness is awake, alert, obeys commands, Oriented to person, place, time, situation. Cardiovascular: Patient's skin is warm and dry. Respiratory: Airway is patent Respiratory effort is even, unlabored, Respiratory pattern is regular, symmetrical. GI: No signs and/or symptoms were reported involving the gastrointestinal system. : No signs and/or symptoms were reported regarding the genitourinary system. : No signs and/or symptoms were reported regarding the genitourinary system. EENT: No signs and/or symptoms were reported regarding the EENT system. Derm: No signs and/or symptoms reported regarding the dermatologic system. Musculoskeletal: Circulation, motion, and sensation intact. Range of motion: intact in all extremities. 22:15 Reassessment: Patient and/or family updated on plan of care and expected duration. Pain ll2 level reassessed. Patient is alert, oriented x 3, equal unlabored respirations, skin warm/dry/pink. pt resting, denies pain at this time. 23:20 Reassessment: Patient and/or family updated on plan of care and expected duration. Pain ll2 level reassessed. Patient is alert, oriented x 3, equal unlabored respirations, skin warm/dry/pink. 07/19 00:51 Reassessment: Patient and/or family updated on plan of care and expected duration. Pain ll2 level reassessed. Patient is alert, oriented x 3, equal unlabored respirations, skin warm/dry/pink. 01:55 Reassessment: Patient and/or family updated on plan of care and expected duration. Pain ll2 level reassessed. Patient is alert, oriented x 3, equal unlabored respirations, skin warm/dry/pink. 02:58 Reassessment: Patient and/or family updated on plan of care and expected duration. Pain ll2 level reassessed. Patient is alert, oriented x 3, equal unlabored respirations, skin warm/dry/pink. Patient denies pain at this time. 03:55 Reassessment: No changes from previously documented assessment. Patient and/or family ll2 updated on plan of care and expected duration. Pain level reassessed. Patient is alert, oriented x 3, equal unlabored respirations, skin warm/dry/pink. 04:54 Reassessment: Patient and/or family updated on plan of care and expected duration. Pain ll2 level reassessed. Patient is alert, oriented x 3, equal unlabored respirations, skin warm/dry/pink. pt given sandwich. 05:22 Reassessment: Lt. amaro at [facility] informed of no bed available for transfer at [facility] [place] this time. pt should be held under direct observation until bed is available and then transferred to the appropriate facility. Vital Signs: 07/18 20:56 BP 126 / 62; Pulse 62; Resp 10; Temp 98.8(T); Pulse Ox 100% on R/A; ll2 21:53 BP 127 / 76; Pulse 58; Resp 11; Pulse Ox 98% on R/A; ll2 22:55 BP 103 / 59; Pulse 54; Resp 14; Pulse Ox 97% on R/A; rv 23:45 BP 117 / 68; Pulse 54; Resp 18; Pulse Ox 98% on R/A; ll2 07/19 00:45 BP 90 / 62; Pulse 52; Resp 18; Temp 98.7; Pulse Ox 98% on R/A; ll2 01:45 BP 94 / 55; Pulse 54; Resp 17; Pulse Ox 98% on R/A; ll2 02:23 BP 112 / 63; Pulse 49; Resp 14; Pulse Ox 99% on R/A; ll2 03:38 BP 96 / 61; Pulse 57; Resp 18; Pulse Ox 97% on R/A; ll2 04:55 BP 135 / 82; Pulse 55; Resp 16; Pulse Ox 96% on R/A; ll2 ED Course: 07/18 20:19 Patient arrived in ED. am2 20:25 Arm band placed on right wrist. EKG completed in triage. Results shown to MD. ll2 20:29 Garry Beasley MD is Attending Physician. 7 20:33 Diana Healy, ISACC is Primary Nurse. ll2 20:37 Triage completed. ll2 20:39 Patient has correct armband on for positive identification. Bed in low position. Adult ll2 w/ patient. 20:55 Inserted saline lock: 22 gauge in right antecubital area, using aseptic technique. ds4 Blood collected. 03 02:13 Initiated transfer with Nevin from [facility]. Was informed to call back with covid tt3 results. 04:49 Updated Nevin with pt covid results. tt3 04:56 Nevin called back with their physician to talk to Dr. Beasley regarding the transfer tt3 request. 05:51 No provider procedures requiring assistance completed. IV discontinued, intact, ll2 bleeding controlled, No redness/swelling at site. Pressure dressing applied. Administered Medications: No medications were administered Outcome: 05:39 Discharge ordered by . [facility] 05:51 Discharged to Law Enforcement ll2 05:51 Condition: stable 05:51 Discharge instructions given to patient, police, Instructed on discharge instructions, follow up and referral plans. Demonstrated understanding of instructions, follow-up care. 05:52 Patient left the ED. ll2 Signatures: Jaren Simon ds4 Sonal Cesar am2 Wilton Rocha RN RN rv Diana Healy RN RN 2 Garry Beasley MD MD [facility] Lazaro Saavedra tt3 Corrections: (The following items were deleted from the chart) 02:19 12/02 20:56 BP 126 / ???; Pulse 62bpm; Resp 10bpm; Pulse Ox 100% RA; ll2 ll2 07/19 03:43 12 20:56 BP 126 / ???; Pulse 62bpm; Resp 10bpm; Pulse Ox 100% RA; Temp 98.8F ll2 Tympanic; ll2
== END 2020-07-19 05:52 | disposition home or self-care (01) ==
LOC: ER 20:18
DX: T43.591A Poisoning by other antipsychotics and neuroleptics, accidental (unintentional), initial encounter (principal); Z20.828 Contact with and (suspected) exposure to other viral communicable diseases; F17.210 Nicotine dependence, cigarettes, uncomplicated
CPT/HCPCS: 85025; 80048; 36415; 80320; 80329 ×2; 85610; 80076; 80307 ×8; 85730; 81003; 99283; U0003